=== PATIENT | male | born 2000 | race Caucasian/White ===

== ENCOUNTER 2023-10-20 12:13 | Observation (INO) ==
[2023-10-20 12:44] LABS: ABS Eosinophils 0.1 10^3/uL (0.0-0.5); ABS Lymphocytes 1.5 10^3/uL (1.0-4.8); ABS Monocytes 0.8 10^3/uL (0.0-1.1); ABS Neutrophils 6.7 10^3/uL (1.5-7.6); ABS Nucleated RBC 0.01 10^3/ul; Eosinophil % 0.8 %; Hematocrit 42.9 % (38-53); Lymphocyte % 16.2 %; Mean Corpuscular Hemoglobin 30.1 pg (27-33); Mean Corpuscular Volume 85.9 fL (80-97); Nucleated Red Blood Cells % 0.1 %/100WBC (0.0-0.8); Platelet Count 233 10^3/uL (150-450); Red Cell Distribution Width 12.7 % (12-17); White Blood Count 9.1 10^3/uL (3.6-10.2)
[2023-10-20 12:50] LABS: INR 1.01 (0.83-1.13)
[2023-10-20 13:04] LABS: Activated Partial Thrombo Time 29.7 seconds (26.0-38.0)
[2023-10-20 13:16] LABS: Albumin 4.3 g/dL (3.2-5.2); Albumin/Globulin Ratio 1.7 (1-3); Calcium 9.1 mg/dL (8.6-10.3); Creatinine, Serum 1.01 mg/dL (0.67-1.17); Globulin 2.5 g/dL (2-4); Potassium 5.1 mmol/L (3.5-5.0); Total Bilirubin 1.2 mg/dL (0.2-1.0); Total Protein 6.8 g/dL (6.4-8.9); eGFR CKD-EPI 107.2 (>60)
[2023-10-20] MEDS: Iohexol 350 (CONTRAST) 500 ML MDV IV ONE (13:46)
[2023-10-20] MEDS: Ondansetron 4 mg VIAL 2 MG/ML 2 ml VIAL IV ONE (14:02)
[2023-10-20 14:37] LABS: High Sensitivity Troponin 1 Hr 3 pg/mL (<20)
[2023-10-20 15:48] LABS: C Reactive Protein 1.41 mg/L (<8.01)
[2023-10-20] MEDS ORDERED: Senna TAB 8.6 mg TAB PO PRN (15:53)
[2023-10-20 16:14] LABS: Urine Benzodiazepine Screen None Detected (None Detect); Urine Cannabinoids Screen None Detected (None Detect); Urine Opiates Screen None Detected (None Detect)
[2023-10-21 05:40] LABS: ABS Basophils 0.1 10^3/uL (0.0-0.1); ABS Eosinophils 0.2 10^3/uL (0.0-0.5); ABS Lymphocytes 2.5 10^3/uL (1.0-4.8); ABS Monocytes 0.6 10^3/uL (0.0-1.1); ABS Neutrophils 2.5 10^3/uL (1.5-7.6); ABS Nucleated RBC 0.01 10^3/ul; Eosinophil % 2.9 %; Hemoglobin 14.8 g/dL (13.2-16.3); Lymphocyte % 42.9 %; Mean Corpuscular Hemoglobin 29.5 pg (27-33); Mean Corpuscular Hgb Conc 34.4 g/dL (31-36); Mean Corpuscular Volume 85.9 fL (80-97); Mean Platelet Volume 8.3 fL (7.5-11.2); Nucleated Red Blood Cells % 0.1 %/100WBC (0.0-0.8); Platelet Count 236 10^3/uL (150-450); Red Cell Distribution Width 12.4 % (12-17); White Blood Count 5.9 10^3/uL (3.6-10.2)
[2023-10-21 06:28] LABS: Creatinine, Serum 1.07 mg/dL (0.67-1.17); Potassium 4.4 mmol/L (3.5-5.0)
[2023-10-22 09:21] LABS: ABS Eosinophils 0.1 10^3/uL (0.0-0.5); ABS Lymphocytes 1.7 10^3/uL (1.0-4.8); ABS Monocytes 0.4 10^3/uL (0.0-1.1); ABS Nucleated RBC 0.01 10^3/ul; Eosinophil % 1.9 %; Hematocrit 47.2 % (38-53); Hemoglobin 15.9 g/dL (13.2-16.3); Lymphocyte % 32.1 %; Mean Corpuscular Hemoglobin 29.3 pg (27-33); Mean Corpuscular Hgb Conc 33.7 g/dL (31-36); Mean Corpuscular Volume 86.9 fL (80-97); Mean Platelet Volume 8.2 fL (7.5-11.2); Nucleated Red Blood Cells % 0.2 %/100WBC (0.0-0.8); Platelet Count 236 10^3/uL (150-450); Red Blood Count 5.43 10^6/uL (4.06-5.63); Red Cell Distribution Width 12.5 % (12-17); White Blood Count 5.2 10^3/uL (3.6-10.2)
[2023-10-22 10:14] LABS: Albumin 4.6 g/dL (3.2-5.2); Albumin/Globulin Ratio 1.8 (1-3); Calcium 9.7 mg/dL (8.6-10.3); Creatinine, Serum 1.24 mg/dL (0.67-1.17); Globulin 2.6 g/dL (2-4); Potassium 4.3 mmol/L (3.5-5.0); Total Bilirubin 1.1 mg/dL (0.2-1.0); Total Protein 7.2 g/dL (6.4-8.9); eGFR CKD-EPI 83.8 (>60)
[2023-10-22 13:48] VITALS: BP 136/84
[2023-10-24 00:16] LABS: Anaplasma phagocytophilum Negative (Negative); B. miyamotoi PCR, B Negative (Negative); Babesia divergens/MO-1 Negative (Negative); Babesia ducani Negative (Negative); Ehrlichia chaffeensis Negative (Negative); Ehrlichia ewingii/canis Negative (Negative); Ehrlichia muris eauclairensis Negative (Negative)
== END 2023-10-22 17:00 | disposition home or self-care (01) ==
LOC: EDHOLD 12:13 → ED 12:13 → SUATTDRO 15:53 → MEDTELE 16:17
PROVIDERS: ADMIT Family Medicine; ATTEND Internal Medicine